=== PATIENT | male | born 1970 | race Asian ===

== ENCOUNTER 2018-07-27 23:33 | Emergency (ER) | payer OTHER ==
[~2018-07-27] VITALS: Ht 167.6 cm; Wt 70.8 kg
--- NOTE | 2018-07-27 23:33 | NUR ---
Patient BIB [facility] for pre-booking medical screening exam, transferred to chair E. RN evaluating patient.
--- NOTE | 2018-07-27 23:44 | NUR ---
Dr. Wooten evaluating patient.
[2018-07-27 23:49] VITALS: BP 122/101
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
[2018-07-27 23:58] VITALS: BP 122/101
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
== END 2018-07-27 23:58 ==
LOC: MED 23:33
DX: Z04.1 Encounter for examination and observation following transport accident (principal); E11.9 Type 2 diabetes mellitus without complications; F17.200 Nicotine dependence, unspecified, uncomplicated; V89.2XXA Person injured in unspecified motor-vehicle accident, traffic, initial encounter; Y93.89 Activity, other specified; Y92.89 Other specified places as the place of occurrence of the external cause; Y99.8 Other external cause status
CPT/HCPCS: 99283